=== PATIENT | female | born 1940 | race Caucasian/White ===

== ENCOUNTER 2020-03-02 12:20 | Outpatient (CLI) | payer MEDICARE, BC, SELFPAY ==
--- NOTE | 2020-03-02 | DI.RAD_ITS ---
EXAM: XR FEMUR RT CLINICAL HISTORY: THIGH PAIN S/P RT HIP HEMIARTHROPLASTY, ASSESS ALIGNMENT/NEW FX TECHNIQUE: Multiple views of the femur were obtained. Two views of the leg were obtained as well. COMPARISON: CR XR TIB/FIB LT from 03/02/2020 FINDINGS: There is a right femoral head prosthesis in position. This appears well seated in the femur and acet abulum. Deformity of the proximal femur in the region of the lesser trochanter is noted, no prior st udies available for comparison, acute or subacute fracture at this site not excluded; additional obli que radiographs or CT should be considered for further evaluation. 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 No focal bony abnormality seen invol ving the remaining portions of the tibia or fibula. IMPRESSION: Question deformity proximal femur in medial/lesser trochanteric region, acute or subacute fracture at prosthetic site not excluded. Additional radiographs or CT recommended for further evaluation.
== END 2020-03-02 12:40 ==
PROVIDERS: PCP Internal Medicine; Visit Provider Orthopaedic Surgery
DX: M79.651 Pain in right thigh (principal); Z96.641 Presence of right artificial hip joint; M89.8X8 Other specified disorders of bone, other site
CPT/HCPCS: 73552; 73590

== ENCOUNTER 2021-10-02 03:15 | Outpatient (CLI) | payer MEDICARE, SELFPAY ==
[2021-10-02 12:14] LABS: HCT 34.2 % (36.0-46.0); HGB 10.2 g/dL (11.2-15.7); MCH 26.7 pg (27.0-33.0); MCHC 29.8 % (32.0-36.0); MCV 89.5 fL (80-95); MPV 10.2 fL (8.0-11.0); Platelet Count 239 10^3/uL (130-400); RBC 3.82 10^6/uL (3.93-5.22); RDW 15.6 % (11.7-14.6)
[2021-10-02 12:41] LABS: Hemoglobin A1C 5.9 % (<5.7)
[2021-10-02 12:58] LABS: ALT 19 U/L (14-59); AST 14 U/L (15-37); Albumin 3.5 g/dL (3.4-5.0); Alkaline Phosphatase 86 U/L (46-116); Anion Gap 6.1 mmol/L (3-11); BUN 15 mg/dL (7-18); Bilirubin, Total 0.5 mg/dL (0.2-1.0); CO2 31.9 mmol/L (21.0-32.0); Calcium 8.9 mg/dL (8.5-10.1); Calculated LDL 69 mg/dL (<100); Chloride 108 mmol/L (98-107); Cholesterol 172 mg/dL (<200); Estimated GFR 53.35 (mL/min/1.73m2); Glucose 134 mg/dL (74-106); HDL Cholesterol 86 mg/dL (40-60); Potassium 3.9 mmol/L (3.5-5.1); Sodium 146 mmol/L (136-145); TSH 0.65 uIU/mL (0.36-3.74); Total Protein 7.1 g/dL (6.4-8.2); Triglyceride 85 mg/dL (<150)
== END 2021-10-02 03:16 | disposition home or self-care (01) ==
LOC: LBO 03:16
PROVIDERS: PCP Internal Medicine
DX: E78.2 Mixed hyperlipidemia (principal); R73.9 Hyperglycemia, unspecified
CPT/HCPCS: 36415; 80053; 80061; 85027; 83036; 84443

== ENCOUNTER → 2023-11-12 00:38 | Outpatient (CLI) | payer MEDICARE, SELFPAY ==
--- NOTE | 2023-11-12 | DI.MAMMO_ITS ---
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 COMPARISON: Available for comparison. FINDINGS: Masses/Architectural Distortion: Status post left lumpectomy. There is a new asymmetric density in t he outer right breast on the craniocaudad view. Microcalcifications: No suspicious pleomorphic-type are seen. Skin Thickening/Nipple Retraction: None. IMPRESSION: 1. New asymmetric density in the outer right breast on the craniocaudad view. 2. This area should be further evaluated with a spot compression view. Limited right breast ultrasou nd may be indicated at that time. BI-RADS Category 0 - Assessment Incomplete: Need additional imaging evaluation Breast Density - Category B - Scattered areas of fibroglandular density Breast density category C or D implies that the patient has dense breast tissue. Dense breast tissue is very common and is not abnormal but dense breast tissue can make it harder to find cancer on a ma mmogram. Also, dense breast tissue may increase their breast cancer risk. This information about the result of the mammogram report was provided to the patient to raise their awareness. Use this report when you speak with the patient about their risks for breast cancer, which includes their family hist ory. At that time, you may recommend for more screening tests (Ultrasound or MRI) as they might be us eful based on their risk. A negative radiographic report should not delay biopsy if a dominant or clinically suspicious mass is present. Up to ten percent of cancers are not identified on mammography. A negative report may reinforce clinical impression. Adenosis and dense breasts may obscure an underlying neoplasm. False positive reports average 6 to 10%. Patient will receive a letter notifying them of these results.
== END ==
PROVIDERS: PCP Internal Medicine; Visit Provider Surgery Surgical Oncology
DX: Z12.31 Encounter for screening mammogram for malignant neoplasm of breast (principal); C50.412 Malignant neoplasm of upper-outer quadrant of left female breast
CPT/HCPCS: 77063; 77067

== ENCOUNTER 2025-03-01 16:20 | Outpatient (CLI) | payer MEDICARE, SELFPAY ==
--- NOTE | 2025-03-01 16:04 | DI.RAD_ITS ---
Exam(s) XR CHEST 2V PA LATERAL EXAM: XR CHEST 2V PA LATERAL CLINICAL HISTORY: Cough, R05.9. TECHNIQUE: 2D digital imaging was performed. COMPARISON: No exams were available for comparison FINDINGS: 2 views: Heart size is normal. The mediastinum is not widened. Lungs are clear. No infiltrates nor pleural effusions. IMPRESSION: No acute pulmonary findings. DATA REPOSITORY: RADIATION DOSE DELIVERED:
== END 2025-03-01 16:40 ==
LOC: DI 16:21
PROVIDERS: PCP Internal Medicine; Visit Provider Nurse Practitioner Family
DX: R05.9 Cough, unspecified (principal)
CPT/HCPCS: 71046

== ENCOUNTER 2025-03-01 16:25 | Outpatient (CLI) | payer MEDICARE, BC, SELFPAY ==
[2025-03-01 16:41] LABS: Abs Immature Grans 0.01 10^3/uL (0.0-0.06); Absolute Basophil Count 0.05 10^3/uL (0.0-0.2); Absolute Eosinophil Count 0.06 10^3/uL (0.0-0.7); Absolute Lymphocyte Count 0.68 10^3/uL (1.2-3.4); Absolute Monocyte Count 0.69 10^3/uL (0.1-0.8); Absolute Neutrophil Count 2.37 10^3/uL (1.2-6.7); Basophils % 1.3 %; Eosinophils % 1.6 %; HCT 40.4 % (36.0-46.0); HGB 12.7 g/dL (11.2-15.7); Immature Grans % 0.3 %; Lymphocytes % 17.6 %; MCH 32.5 pg (27.0-33.0); MCHC 31.4 % (32.0-36.0); MCV 103 fL (80-95); MPV 11.3 fL (8.0-11.0); Monocytes % 17.9 %; Neutrophils % 61.3 %; Platelet Count 152 10^3/uL (130-400); RBC 3.91 10^6/uL (3.93-5.22); RDW 13.3 % (11.7-14.6); RDW-SD 51.1 fL; WBC 3.86 10^3/uL (4.4-10.8)
[2025-03-01 17:30] LABS: Anion Gap 5.9 mmol/L (3-11); BUN 16 mg/dL (7-18); CO2 32.1 mmol/L (21.0-32.0); CREATININE 1.2 mg/dL (0.55-1.02); Calcium 9.2 mg/dL (8.5-10.1); Chloride 103 mmol/L (98-107); Estimated GFR 44.64 (mL/min/1.73m2); Glucose 100 mg/dL (74-106); NT-proBNP 345 pg/mL (<300); Potassium 3.9 mmol/L (3.5-5.1); Sodium 141 mmol/L (136-145)
== END 2025-03-01 16:26 | disposition home or self-care (01) ==
LOC: LBO 16:26
PROVIDERS: PCP Internal Medicine; Visit Provider Nurse Practitioner Family
DX: R06.02 Shortness of breath (principal)
CPT/HCPCS: 36415; 80048; 71046; 83880; 85025